=== PATIENT | female | born 1935 | race Caucasian/White ===

== ENCOUNTER 2017-02-28 08:19 | Outpatient (CLI) | payer MEDICARE ==
--- NOTE | 2017-02-28 11:55 | CT ---
CT ABDOMEN AND PELVIS WITH CONTRAST: HISTORY: Epigastric and pelvic pain for multiple months. Surgical history of cholecystectomy, appendectomy, p olyp removal from right knee, and hysterectomy. COMPARISON: Abdomen and pelvis CT from 2011. FINDINGS: The lung bases are without focal air space consolidation, pneumothorax, or effusion. No pericardial effusion. Wiscon effect of the intrahepatic and extrahepatic biliary system. Prior cholecystectomy. The common bile duct measures approximately 8 mm. There is mild prominence of the pancreatic duct, a t the upper limits of normal, measuring 4 mm at the pancreatic body and 4 mm at the pancreatic head. No distal obstructing mass is appreciated. There appears to be a cystic pancreatic mass of the panc reatic body, measuring 5 mm. This is seen on series 601, image 48, with minimal size increase in 201 1. Simple cyst, inferior pole, left kidney. There is exophytic hypodensity, inferior pole, right kidney , although measures just greater than fluid attenuation and has mildly increased in size from the com parison examination. This measures approximately 1.3 cm. In 2011, this measured approximately 8 mm. Also new, extending from the right renal medulla, is a hypodensity extending into the renal sinus f at, measuring 17 Hounsfield units, with an internal septation. Although this appears to communicate with the collecting system, it may represent a dilated calyx. 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 There is also focal dilatation of the lef t inferior renal calyx. Moderate diverticular disease of the sigmoid colon without active inflammation. No dilated loops of large or small bowel. The adrenal glands are unremarkable. No adenopathy. Small, fat-containing direct inguinal hernia. IMPRESSION: 1. 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 Follow-up M RI with pancreatic protocol, in six months to one year, is recommended. 2. Size increase of the hypodensity, inferior pole, right kidney, now measuring approximately 13 mm, previously 8 mm, may reflect a benign cyst, although this should also be interrogated on the follow- up pancreatic protocol MRI for enhancement. 3. New what appears to be dilatation of right and left inferior renal calyces. No hydronephrosis. 4. Moderate diverticular disease of the sigmoid colon without active inflammation. 5. No acute inflammatory process of the abdomen or pelvis. 6. Wiscon effect of the intrahepatic and extrahepatic biliary system, similar to 2011. POS: C
[2017-02-28] MEDS ORDERED: Iopamidol 370 76% 100 ML VIAL ONE (16:54)
== END 2017-02-28 08:20 | disposition home or self-care (01) ==
LOC: CT 08:19
PROVIDERS: ATTEND Internal Medicine Gastroenterology
DX: K21.9 Gastro-esophageal reflux disease without esophagitis (principal); R10.30 Lower abdominal pain, unspecified; R19.4 Change in bowel habit; K57.30 Diverticulosis of large intestine without perforation or abscess without bleeding; N28.89 Other specified disorders of kidney and ureter; K86.89 Other specified diseases of pancreas
CPT/HCPCS: 74177

== ENCOUNTER 2017-03-14 14:35 | Outpatient (CLI) | payer MEDICARE | END 2017-03-14 14:36 | disposition home or self-care (01) | LOC: BICMAMMO 14:35 | PROVIDERS: ATTEND Family Medicine | DX: R92.8 Other abnormal and inconclusive findings on diagnostic imaging of breast (principal); Z80.3 Family history of malignant neoplasm of breast | CPT/HCPCS: G0204; G0279; 77066 ==

== ENCOUNTER 2017-09-15 09:24 | Outpatient (CLI) | payer MEDICARE ==
[2017-09-15 09:54] LABS: #Eosinphils 0.2 thou/uL (0.0-0.7); #Lymphocytes 1.9 thou/uL (1.20-3.40); #Monocytes 0.4 thou/uL (0.11-0.59); #Neutrophils 5.9 thou/uL (1.40-6.50); %Basophils 0.2 % (0.0-1.0); %Lymphocytes 22.7 % (21.0-51.0); %Monocytes 5.2 % (0.0-10.0); %Neutrophils 69.8 % (42.0-75.0); Hemoglobin 12.9 g/dL (12.0-16.0); Mean Corpuscular HGB CONC 35.2 g/dL (32.0-36.0); Mean Corpuscular Hemoglobin 32.5 pg (27.0-31.0); Mean Corpuscular Volume 92.3 fL (78.0-98.0); Mean Platelet Volume 6.5 fL (7.4-10.4); Platelet Count 223 thou/uL (130-400); RBC Distribution Width 11.2 % (11.5-14.5); Red Blood Cell (RBC) Count 3.96 mill/uL (4.20-5.40); White Blood Cell (WBC) Count 8.4 thou/uL (4.8-10.8)
[2017-09-15 10:26] LABS: ALT (SGPT) 11 U/L (8-55); AST (SGOT) 14 U/L (5-34); Albumin 4.4 g/dL (3.4-4.8); Alkaline Phosphatase 58 U/L (40-150); Anion Gap 13 mmol/L (10-20); BUN (Urea Nitrogen) 12 mg/dL (9.8-20.1); Bilirubin, Total 0.7 mg/dL (0.2-1.2); Calc. Creatinine Clearance 0 mL/min (70-130); Calcium 9.6 mg/dL (7.8-10.44); Carbon Dioxide 28 mmol/L (23-31); Chloride 104 mmol/L (98-107); Estimated GFR-MDRD 81; Glucose 92 mg/dL (83-110); Potassium 4.6 mmol/L (3.5-5.1); Protein, Total 7.4 g/dL (6.0-8.3); Sodium 140 mmol/L (136-145)
--- NOTE | 2017-09-15 13:58 | MRI ---
MRI OF THE ABDOMEN WITHOUT AND WITH CONTRAST: Date: 09/15/17 COMPARISON: None. HISTORY: Abnormal finding on GI tract imaging. COMPARISON: CT abdomen/pelvis dated 02/28/17. TECHNIQUE: Multiplanar, multisequence MR images were obtained of the abdomen without and with contrast. FINDINGS: The gallbladder has been removed. There is enlargement of the common bile duct to 11.0 mm, which is l ikely a reservoir effect from prior cholecystectomy. No significant intrahepatic biliary dilatation i s seen. There are multiple well circumscribed, nonenhancing foci of high T2 signal in the bilateral kidneys m easuring up to 5.4 cm in size, which represent simple cysts. Within the pancreas, there are multiple tiny well circumscribed foci of high T2 signal which represen t cysts. In the body of the pancreas, there is a lesion emanating from the anterior aspect of the boateng creas measuring approximately 6.0 mm in size. This does not demonstrate enhancement and has questiona ble communication with the pancreatic duct. The pancreatic duct is mildly prominent, but unchanged co mpared to the prior examination. The adrenals and spleen are unremarkable. There are scattered diverticula in the colon. No abdominal adenopathy is seen. No marrow signal abnormality is seen. IMPRESSION: 1. The lesion previously seen in the pancreatic body may have communication with the pancreatic duct . This is not significantly changed in size compared to the prior examination. 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 Alternatively, this could represent a small cyst in the pancreas immediately adjac ent to the pancreatic duct. There are other scattered tiny cysts in the pancreas. 2. Bilateral renal cysts. 3. Status post cholecystectomy with enlargement of the common bile duct. This is likely a reservoir effect from prior cholecystectomy. POS: HAIM
== END 2017-09-15 09:25 | disposition home or self-care (01) ==
LOC: MRI 09:24
PROVIDERS: ATTEND Internal Medicine Gastroenterology
DX: K57.32 Diverticulitis of large intestine without perforation or abscess without bleeding (principal); R93.3 Abnormal findings on diagnostic imaging of other parts of digestive tract; N28.1 Cyst of kidney, acquired; K86.2 Cyst of pancreas; K83.8 Other specified diseases of biliary tract; Z90.49 Acquired absence of other specified parts of digestive tract
CPT/HCPCS: 36415; 74183; 80053; 85025

== ENCOUNTER 2018-03-16 09:01 | Outpatient (CLI) | payer MEDICARE | END 2018-03-16 09:02 | disposition home or self-care (01) | LOC: BICMAMMO 09:01 | PROVIDERS: ATTEND Family Medicine | DX: Z12.31 Encounter for screening mammogram for malignant neoplasm of breast (principal); R92.1 Mammographic calcification found on diagnostic imaging of breast; Z80.3 Family history of malignant neoplasm of breast | CPT/HCPCS: 77063; 77067 ==

== ENCOUNTER 2018-09-09 11:31 | Observation (INO) | payer MEDICARE ==
--- NOTE | 2018-09-09 11:55 | RAD ---
Exam: Chest one view HISTORY:Chest pain Comparison: 06/21/2015 FINDINGS: Lungs: No masses or consolidation. The right hemidiaphragm remains elevated. Cardiac silhouette:Accentuated by portable technique Pulmonary vessels: Normal Pleural Spaces: Clear Pneumothorax: None Osseous abnormalities: None of acuity. IMPRESSION: No focal consolidation.
[2018-09-09 12:09] LABS: #Eosinphils 0.1 thou/uL (0.0-0.7); #Lymphocytes 1.8 thou/uL (1.20-3.40); #Monocytes 0.4 thou/uL (0.11-0.59); #Neutrophils 3.5 thou/uL (1.40-6.50); %Basophils 0.7 % (0.0-1.0); %Eosinophils 1.1 % (0.0-10.0); %Lymphocytes 30.8 % (21.0-51.0); %Monocytes 7.1 % (0.0-10.0); %Neutrophils 60.2 % (42.0-75.0); Hemoglobin 12.7 g/dL (12.0-16.0); Mean Corpuscular HGB CONC 32.5 g/dL (32.0-36.0); Mean Corpuscular Hemoglobin 30.3 pg (27.0-31.0); Mean Corpuscular Volume 93.2 fL (78.0-98.0); Platelet Count 257 thou/uL (130-400); RBC Distribution Width 11.2 % (11.5-14.5); Red Blood Cell (RBC) Count 4.18 mill/uL (4.20-5.40); White Blood Cell (WBC) Count 5.9 thou/uL (4.8-10.8)
[2018-09-09 12:39] LABS: ALT (SGPT) 11 U/L (8-55); AST (SGOT) 19 U/L (5-34); Albumin 4.1 g/dL (3.4-4.8); Alkaline Phosphatase 49 U/L (40-150); Anion Gap 13 mmol/L (10-20); BUN (Urea Nitrogen) 17 mg/dL (9.8-20.1); Bilirubin, Total 0.6 mg/dL (0.2-1.2); CK (CPK) 69 U/L (29-168); Calc. Creatinine Clearance 0 mL/min (70-130); Calcium 10.2 mg/dL (7.8-10.44); Carbon Dioxide 28 mmol/L (23-31); Chloride 103 mmol/L (98-107); Estimated GFR-MDRD 67; Globulin 2.7 g/dL (2.4-3.5); Glucose 90 mg/dL (83-110); Lipase 25 U/L (8-78); Potassium 4.6 mmol/L (3.5-5.1); Protein, Total 6.8 g/dL (6.0-8.3); Sodium 139 mmol/L (136-145)
[2018-09-09] MEDS ORDERED: Nitroglycerin 0.4 MG TAB (25 Tab Bottle) PO PRN (14:45)
[2018-09-09] MEDS ORDERED: Acetaminophen 325 MG TAB PO PRN (14:45)
[2018-09-09] MEDS ORDERED: Calcium Carbonate 500 MG ChewTAB PO PRN (14:49)
[2018-09-09] MEDS ORDERED: hydrALAZINE 20 MG/ML VIAL SLOW IVP PRN (14:57)
[2018-09-09] MEDS ORDERED: Metoprolol Tartrate 25 MG TAB PO SCH (15:00)
[2018-09-09] MEDS ORDERED: Aspirin 325 mg Enteric Coated Tablet PO SCH (15:15)
--- NOTE | 2018-09-09 15:32 | HP ---
PRIMARY CARE PHYSICIAN: Dr. Arellano. CHIEF COMPLAINT: "Feel bad." HISTORY OF PRESENT ILLNESS: This is an 82-year-old female with history of coronary artery disease and 5-stent placement, hypertension, dyslipidemia, irritable bowel, TIAs, who presents to the emergency room with the above complaint. The patient reports after she got up this morning, she took her blood pressure and the systolic was 188. She retook it and it was lower, but still not normal. She proceeded with her day and went to exercise and walked around, went for coffee and noticed that she still did not feel too good. She describes pressure in her chest in the center area, that did not radiate, no precipitating or relieving factors. She did have some shortness of breath, but denies any nausea, vomiting, or abdominal pain. She took two Tums without change, and the symptoms persisted. She stopped at the [facility] with a complaint of chest heaviness, there they provided an aspirin, and she was transferred to this facility. She denies any symptoms now, denies any recent history of similar symptoms, and denies any other associated symptoms aside from the shortness of breath and belching. In the emergency room, the patient was evaluated, and labs completed and hospitalist called for admission. PAST MEDICAL HISTORY: 1. Coronary artery disease with history of 5-stent placement. 2. Dyslipidemia. 3. Hypertension. 4. Irritable bowel. 5. TIAs. PAST SURGICAL HISTORY: 1. Hysterectomy. 2. Appendectomy. 3. Cholecystectomy. 4. Right knee replacement. SOCIAL HISTORY: She lives with her who is her surrogate decision maker Blayne, denies tobacco or alcohol, and she is a full code. REVIEW OF SYSTEMS: Positive for shortness of breath and belching, negative for nausea, vomiting, abdominal pain, fevers or chills, change in her vision, difficulty swallowing. All remaining review of systems are reviewed and negative. MEDICATIONS: Unknown, and review from the medical record with her pharmacy shows; 1. Clopidogrel 75 mg daily. 2. Ibandronate 150 mg a month. 3. Omeprazole 40 mg, no frequency noted. 4. Furosemide 20 mg, no frequency noted. 5. Losartan 100 mg, no dosing instructions. 6. Potassium chloride 10 mEq daily. 7. Pravastatin 10 mg and ezetimibe 10 mg also without dosing. The patient will have her bring in her medications. PHYSICAL EXAMINATION: VITAL SIGNS: Her blood pressure is 175/76, pulse 62, respirations 18, temperature 98.1, sats 98% on room air. GENERAL: Awake, alert, responsive, in no apparent distress. Able to speak in full sentences. HEENT: Her pupils are equal and round. No scleral icterus. Oral mucosa is pink and moist. NECK: Supple, nontender. LYMPHATICS: No palpable cervical or supraclavicular lymphadenopathy. NECK: No audible bruits. LUNGS: Clear to auscultation bilateral. HEART: Normal S1, S2. Regular rate and rhythm. No significant murmur. ABDOMEN: Soft with present bowel sounds. Nontender. Nondistended. EXTREMITIES: No clubbing, cyanosis, or edema. VASCULAR: 2+ posterior tibialis pulses. SKIN: No visible rashes. NEUROLOGIC: Moves arms and legs equally. No visible deficits. RUST FINDINGS AND TEST RESULTS: EKG is personally reviewed. Sinus rhythm, left axis deviation, normal intervals, abnormal R-wave progression, no ST changes. Chest x-ray shows no acute process, personally reviewed. LABORATORY DATA: Today CBC; 5.9, 12.7, 39.0, 257. Renal panel; 139, 4.6, 103, 28, 17, 0.82 , 90. LFTs negative. Troponin x1 is negative. IMPRESSION: 1. Atypical chest pain in a patient with known coronary artery disease and history of stent placement. 2. Hypertension, uncontrolled. 3. Dyslipidemia, unknown control. 4. Irritable bowel syndrome. 5. History of transient ischemic attack. PLAN: 1. Observation status in the hospital. 2. Telemetry monitoring. Two additional troponins. Echocardiogram and Cardiology consultation. The patient sees Dr. Ojeda as an outpatient, who is on-call tonight. We will hold on ordering a stress test pending his review as I am uncertain what testing has occurred in the outpatient setting. 3. We will order full-dose aspirin, and continue clopidogrel, we will also order omeprazole. 4. Hypertension, controlled. We will start a low-dose beta bernadine as well as losartan, dose it twice a day with hold parameters. Will use hydralazine as needed for significantly elevated blood pressure. 5. We will continue ezetimibe, holding the statin as the patient reports that she was having all over pain with the statin and it was recently discontinued. 6. Further clinical course pending all of the above and Dr. Ojeda's consultation. 7. DVT prophylaxis. She is ambulatory. 8. GI prophylaxis not indicated. 9. Code status is full and surrogate decision maker is her . 10. Reviewed the plan of care with the patient. No questions or further needs at the end of evaluation. Job ID: [id number] MTDD
[2018-09-09 15:44] LABS: Troponin I Less than 0.010 ng/mL (< 0.028)
[2018-09-09 16:00] VITALS: BMI 26.2
[2018-09-09] MEDS ORDERED: Aspirin 325 MG TAB ONE (16:48)
[2018-09-09] MEDS ORDERED: Metoprolol Tartrate 25 MG TAB ONE (16:53)
[2018-09-09 18:32] LABS: Troponin I 0.012 ng/mL (< 0.028)
[2018-09-09] MEDS ORDERED: Mag-Al 1200 mg/1200 mg/30 ML UDCUP ONE (19:03)
[2018-09-09] MEDS ORDERED: Famotidine/PF 20 mg/2ml Vial SLOW IVP SCH (19:15)
[2018-09-09] MEDS ORDERED: Famotidine/PF 20 mg/2ml Vial ONE (19:16)
[2018-09-09] MEDS ORDERED: Mag-Al 1200 mg/1200 mg/30 ML UDCUP PO SCH (19:30)
[2018-09-09] MEDS: Metoprolol Tartrate 25 MG TAB PO SCH (20:43)
[2018-09-09] MEDS: Losartan 25 MG TAB PO SCH (21:29)
--- NOTE | 2018-09-10 00:22 | CON ---
DATE OF CONSULTATION: REASON FOR CONSULTATION: Chest pressure. HISTORY OF PRESENT ILLNESS: Ms. Desiree Palm is a very pleasant patient who has a history of coronary artery disease, previous stent implantation. She was feeling well this morning when she went and exercised and later began feeling upper epigastric discomfort and then lower chest discomfort and then pressure across her chest, came here to the emergency room. Cardiac enzymes have been negative. EKGs are normal. PAST MEDICAL HISTORY: 1. She has a history of coronary artery disease. 2. History of esophageal reflux. She previously had been on Protonix, but is not taking that currently. MEDICATIONS: At home, 1. She was taking losartan 50 mg twice a day. 2. Metoprolol 25 mg twice a day. 3. Pantoprazole, she is not taking. 4. Aspirin. 5. She was still on clopidogrel. ALLERGIES: NONE KNOWN, BUT SHE IS INTOLERANT TO STATIN. SHE EVEN RECENTLY TRIED TO TAKE SOME PRAVASTATIN, BUT GOT MUSCLE PAIN AGAIN, ONLY COULD TAKE IT A FEW DAYS. REVIEW OF SYSTEMS: CONSTITUTIONAL: No significant weight gain or loss. VISION: No changes. HEARING: No changes. PULMONARY: No cough or wheezing. GASTROINTESTINAL: No nausea, vomiting, or diarrhea. SKIN: No rashes. NEUROLOGIC: No unilateral weakness or numbness. PSYCHIATRIC: No unusual depression or anxiety. PHYSICAL EXAMINATION: GENERAL: This is a pleasant patient, resting comfortably, in no distress. She said she felt much better when she got some Maalox. VITAL SIGNS: Her blood pressure 134/68, pulse 60, it is regular. HEENT: Eyes, sclerae are nonicteric. Mouth, mucous membranes are moist. NECK: Supple without lymphadenopathy. LUNGS: Clear. No wheezing, rales, or rhonchi. CARDIAC: Normal S1, normal S2. There is no murmur, rub, or gallop. ABDOMEN: Soft, nontender. EXTREMITIES: No clubbing. No cyanosis or edema. She has good peripheral pulses. LABORATORY DATA: Cardiac enzymes were negative. Potassium is 4.6, hemoglobin is 12.7. EKG showed no ischemic changes. ASSESSMENT: 1. Previous stent implantation. She had a 3.5 x 16 mm stent placed in the right coronary artery in 2004, 3.0 x 16 mm Taxus in 2004. She subsequently had restenosis and that was re-stented with a 3.0 x 20 Taxus. Circumflex had a 3.0 x 12 PROMUS placed in 2011. The other vessels did not have restenosis at that point. 2. She had a stress test last summer which was negative. PLAN: At this point, it is unclear what is causing the chest discomfort. I suspect it is gastrointestinal. We will resume antacid therapy and do stress testing tomorrow. Further recommendations are based on the clinical course. Job ID: [id number]
[2018-09-10] MEDS ORDERED: Aspirin 325 mg Enteric Coated Tablet PO SCH (09:00)
[2018-09-10] MEDS: Ezetimibe 10 MG TAB PO SCH (09:17)
[2018-09-10] MEDS: Clopidogrel Bisulfate 75 MG TAB PO SCH (09:17)
[2018-09-10] MEDS: Losartan 25 MG TAB PO SCH ×2 (09:17→21:15)
[2018-09-10] MEDS: Famotidine/PF 20 mg/2ml Vial SLOW IVP SCH ×2 (09:18→21:15)
[2018-09-10] MEDS ORDERED: Regadenoson 0.4 MG/5 ML SYRINGE ONE (10:19)
--- NOTE | 2018-09-10 16:25 | NM ---
Radionucleotide stress and rest myocardial perfusion scan with CT attenuation correction and SPECT im aging Left ventricular wall motion evaluation and ejection fraction. HISTORY: Chest pain. FINDINGS: Lexiscan protocol. Homogeneous uptake of radiotracer throughout the left ventricular myocar dium on the stress and rest images. No focal perfusion defect or reversibility. QGS analysis of gated SPECT images shows no focal wall motion abnormalities. Ejection fraction calcul ated at 80%. IMPRESSION: Normal myocardial perfusion scan. Normal LVEF.
--- NOTE | 2018-09-10 18:18 | PRG ---
DATE OF SERVICE: 09/10/2018 SUBJECTIVE: The patient is seen and examined at bedside. She just came back from her stress test. She does not have much complaints to offer. OBJECTIVE: VITAL SIGNS: Blood pressure is 130/58, pulse is 61, temperature is 98.0, respirations 15, and O2 saturation is 98% on room air. HEENT: Head is atraumatic and normocephalic. Eyes are PERRLA. Sclerae are nonicteric. Oral mucosa is moist. NECK: Supple. LUNGS: Clear. HEART: S1 and S2 normal. No S3. No S4. No any murmur. ABDOMEN: Soft and nontender. EXTREMITIES: No clubbing, cyanosis, or edema. LABORATORY DATA: None today. Stress test nuclear medicine, impression normal perfusion scan, normal LVEF. Ejection fraction calculated at 80%. IMPRESSION: 1. Atypical chest pain with negative stress test. We are awaiting for echocardiogram. 2. Hypertension, uncontrolled. 3. Dyslipidemia. 4. Irritable bowel syndrome. 5. History of transient ischemic attack. PLAN: I am going to extend this observation. Overnight, we will get results back on her echocardiogram and we will make decision about the next step as soon as we have that. We will continue the current regimen. Her blood pressure is under good control. We will continue clopidogrel and Zetia along with Cozaar, metoprolol tartrate, pantoprazole, aspirin, and calcium carbonate. Job ID: [id number]
--- NOTE | 2018-09-10 18:22 | PRG ---
DATE OF SERVICE: 09/10/2018 SUBJECTIVE: Ms. Palm feels fine. No chest pain or pressure. The acid reflux is improved. OBJECTIVE: VITAL SIGNS: Blood pressure 130/58, pulse 60. LUNGS: Clear. CARDIAC: Normal S1 and normal S2. ABDOMEN: Soft and nontender. DIAGNOSTIC STUDIES: Stress test was normal. ASSESSMENT: 1. History of coronary artery disease with stent implantation. 2. No evidence of any stress-induced ischemia on stress testing. 3. Esophageal reflux. 4. Statin intolerance. PLAN: The patient will go home tomorrow on current medical regimen. We would keep her on Protonix long-term. Aspirin could be reduced to 81 mg a day. Job ID: [id number]
[2018-09-10] MEDS: Metoprolol Tartrate 25 MG TAB PO SCH ×2 (19:39→21:15)
[2018-09-11 07:40] VITALS: BP 170/76; TEMP 97.6
[2018-09-11] MEDS ORDERED: Aspirin 325 mg Enteric Coated Tablet PO SCH (09:00)
[2018-09-11] MEDS: Clopidogrel Bisulfate 75 MG TAB PO SCH (09:05)
[2018-09-11] MEDS: Famotidine/PF 20 mg/2ml Vial SLOW IVP SCH (09:06)
[2018-09-11] MEDS: Losartan 25 MG TAB PO SCH (09:06)
[2018-09-11] MEDS: Ezetimibe 10 MG TAB PO SCH (09:06)
[2018-09-11] MEDS: Metoprolol Tartrate 25 MG TAB PO SCH (09:06)
--- NOTE | 2018-09-11 10:25 | DIS ---
DATE OF ADMISSION: 09/09/2018 DATE OF DISCHARGE: 09/11/2018 CONSULTANTS: Jeannette Ojeda MD, Cardiology Service. TESTINGS: Stress test with nuclear medicine. HOSPITAL COURSE: The patient is an 82-year-old female, who was admitted to the hospital with feeling bad. Apparently, she has a history of coronary artery disease and 5 stents placement along with hypertension, dyslipidemia, irritable bowels syndrome, and history of TIA. She noticed that her blood pressure at home was elevated at 188. She did have some shortness of breath, but denied any nausea, vomiting, or abdominal pain. She took Tums without change and since the symptoms persisted, she stopped at [facility] with complaints of chest heaviness. She was provided aspirin and transferred to emergency room at [facility] in [place]. At the time of emergency room evaluation, her blood pressure was 175/76, respirations 18, temperature was 98.1, and saturation was 98% on room air. Her EKG showed sinus rhythm with left axis deviation, normal intervals, and abnormal R-wave progression. No ST-segment changes. Chest x-ray did not show any acute abnormalities. Her labs showed white count of 5.9, hemoglobin of 12.7, hematocrit 39.0, and platelet count was 257. Electrolytes within normal limits and kidney function was normal. LFTs were normal and troponin I x1 was negative. The patient got admitted to hospital. Echocardiogram was requested and the Cardiology consult was requested. It was not clear what was causing her chest discomfort, so antiacid therapy was resumed and stress test. She underwent stress test with nuclear medicine, which came back negative. LVEF was estimated at 80% and the perfusion scan was normal. Echocardiogram was done, but results are still pending. She is released by Dr. Ojeda to go home today and he will discuss the findings on her echocardiogram results when she is following up with him. At the time of discharge, her condition is good. Her vitals; blood pressure is 148/75, pulse is 61, respirations 15, O2 saturation is 97, and temperature is 98.5. She was seen and examined before she is discharged. MEDICATIONS: At the time of discharge, 1. Protonix. 2. Calcium carbonate 1000 mg q.4 hours p.r.n. as needed. 3. Plavix 75 mg once a day. 4. Zetia 10 mg once a day. 5. Losartan 100 mg once a day. 6. Potassium chloride 10 mEq once a day. 7. Multivitamin one a day. 8. Pravastatin 10 mg at bedtime. 9. Boniva 150 mg q.30 days. 10. MiraLAX 15 g daily. 11. Fish oil 1000 mg daily. 12. Vitamin D3 5000 units daily. 13. Coenzyme Q10 400 mg daily. 14. Aspirin 81 mg daily. The patient states that she cannot take aspirin because of her stomach problem she had from an aspirin before, but I advised her to discuss this problem with Dr. Ojeda when she follows in his office. Also, she will continue her Lasix, which is furosemide 20 mg once a day. DIET: Low-salt, heart-healthy diet. ACTIVITIES: As tolerated. DISPOSITION: Home. TIME SPENT: Time spent on this discharge is less than 30 minutes. Job ID: [id number]
--- NOTE | 2018-09-12 11:58 | EKG ---
Test Reason : Blood Pressure : / mmHG Vent. Rate : 062 BPM Atrial Rate : 062 BPM P-R Int : 156 ms QRS Dur : 084 ms QT Int : 408 ms P-R-T Axes : 010 -40 026 degrees QTc Int : 414 ms Normal sinus rhythm Left axis deviation Low voltage QRS Abnormal ECG Confirmed by NOEL VITAL D.O. ([id number]), photography editor YAW DHILLON ([id number]) on 09/12/2018 11:57:46 AM Referred By: Confirmed By:NOEL VITAL D.O.
== END 2018-09-11 10:02 | disposition home or self-care (01) ==
LOC: ERS 11:31 → ERHOLD 13:41 → 2SW 20:04
PROVIDERS: ADMIT Internal Medicine; ATTEND Internal Medicine
DX: R07.89 Other chest pain (principal); I25.10 Atherosclerotic heart disease of native coronary artery without angina pectoris; E78.5 Hyperlipidemia, unspecified; I10 Essential (primary) hypertension; K58.9 Irritable bowel syndrome, unspecified; K21.9 Gastro-esophageal reflux disease without esophagitis; T46.6X5A Adverse effect of antihyperlipidemic and antiarteriosclerotic drugs, initial encounter; M19.90 Unspecified osteoarthritis, unspecified site; Z86.73 Personal history of transient ischemic attack (TIA), and cerebral infarction without residual deficits; Z95.5 Presence of coronary angioplasty implant and graft; Z79.02 Long term (current) use of antithrombotics/antiplatelets; Z79.899 Other long term (current) drug therapy
CPT/HCPCS: 71045; 78452; 80053; 82550; 83690; 84484 ×2; 85025; 93005; 93017; 93306; 94760; 96374; 96376; 99285; A9500; G0378 ×2; 36415; J2785; S0028

== ENCOUNTER 2019-08-12 12:18 | Outpatient (CLI) | payer MEDICARE ==
--- NOTE | 2019-08-12 15:43 | MMO ---
Bilateral MAMMO Bilat Screen DDI+MAI. CLINICAL HISTORY: Patient is 83 years old and is seen for screening. The patient has the following family history of breast cancer: sister, malignant (generic). The patient has no personal history of cancer. The patient has a history of right Ultrasound Guided Core Biopsy in 2013 - benign. VIEWS: The views performed were: bilateral craniocaudal with tomosynthesis and bilateral mediolateral oblique with tomosynthesis. FILMS COMPARED: The present examination has been compared to prior imaging studies performed at [facility] on 03/14/2017 and 03/16/2018, and at [facility] on 02/15/2016 and 09/10/2016. This study has been interpreted with the assistance of computer-aided detection. MAMMOGRAM FINDINGS: There are scattered fibroglandular densities. Finding 1: There are stable benign appearing calcifications seen in both breasts. Finding 2: There is a stable biopsy clip seen in the right breast. There are no suspicious masses, suspicious calcifications, or new areas of architectural distortion. IMPRESSION: THERE IS NO MAMMOGRAPHIC EVIDENCE OF MALIGNANCY. A ROUTINE FOLLOW-UP MAMMOGRAM IN 1 YEAR IS RECOMMENDED. THE RESULTS OF THIS EXAM WERE SENT TO THE PATIENT. ACR BI-RADS Category 2 - Benign finding MAMMOGRAPHY NOTE: 1. A negative mammogram report should not delay a biopsy if a dominant of clinically suspicious mass is present. 2. Approximately 10% to 15% of breast cancers are not detected by mammography. 3. Adenosis and dense breasts may obscure an underlying neoplasm. Reported by: RACIEL PHAM MD Electonically Signed: [id number]
== END 2019-08-12 12:19 | disposition home or self-care (01) ==
LOC: BICMAMMO 12:18
PROVIDERS: ATTEND Family Medicine
DX: Z12.31 Encounter for screening mammogram for malignant neoplasm of breast (principal); Z80.3 Family history of malignant neoplasm of breast; Z91.89 Other specified personal risk factors, not elsewhere classified
CPT/HCPCS: 77063; 77067

== ENCOUNTER 2019-12-20 23:15 | Emergency (ER) | payer MEDICARE ==
[2019-12-20] MEDS ORDERED: Lidocaine 4% Cream 5 GM TUBE w/ Tegaderm ONE (23:52)
[2019-12-21] MEDS ORDERED: Boostrix 0.5 ML VIAL ONE (00:17)
--- NOTE | 2019-12-21 07:02 | CT ---
CT OF THE FACE WITHOUT CONTRAST: Date: 12/20/2019 HISTORY: History of tripping and falling with injury to the left aspect of the face. FINDINGS: The visualized nasal bone is intact. The orbital rims are intact. There is an inferior left orbital f brooks blowout fracture with depression of the left inferior orbital floor approximately 5.0 mm. There is hemorrhage and mucosal thickening within the left maxillary sinus. No additional fracture is gross ly evident. Mastoid air cells are clear. Visualized intracranial contents appear within normal limits . Iliamna lenses have been replaced. Dental amalgam limits evaluation of the oral cavity. There is mil d spondylosis of the cervical spine. IMPRESSION: 1. Left inferior orbital floor blowout fracture with approximately 5.0 mm of depression of the left inferior orbital floor fracture fragment. There is no overt CT evidence to suggest entrapment of the left inferior rectus. Recommend correlation with clinical exam. 2. Air-hemorrhage layer within the left maxillary sinus. POS: BH
--- NOTE | 2019-12-21 07:04 | CT ---
CT OF THE BRAIN WITHOUT CONTRAST: Date: 12/20/2019 INDICATION: History of fall with head injury and facial injury. COMPARISON: Prior exam dated 04/18/2014. FINDINGS: There is generalized cerebral and cerebellar atrophy. There is moderate chronic small vessel white ma tter ischemic change. Septum pellucidum and third ventricle are midline. There is a left inferior orb ital floor blowout fracture that is better detailed on the CT of the face. There is an air-hemorrhage layer within the left maxillary sinus. IMPRESSION: 1. No acute intracranial abnormality. 2. Generalized cerebral and cerebellar atrophy with moderate chronic small vessel white matter ische fani change. 3. Left inferior orbital floor blowout fracture. POS: BH
== END 2019-12-21 01:23 | disposition home or self-care (01) ==
LOC: ERS 23:15
DX: S02.32XA Fracture of orbital floor, left side, initial encounter for closed fracture (principal); S01.112A Laceration without foreign body of left eyelid and periocular area, initial encounter; S01.511A Laceration without foreign body of lip, initial encounter; E78.5 Hyperlipidemia, unspecified; I10 Essential (primary) hypertension; M19.90 Unspecified osteoarthritis, unspecified site; W01.198A Fall on same level from slipping, tripping and stumbling with subsequent striking against other object, initial encounter; Z23 Encounter for immunization
CPT/HCPCS: 12011; 70450; 70486; 90471; 90715

== ENCOUNTER 2020-01-09 16:31 | Emergency (ER) | payer MEDICARE ==
--- NOTE | 2020-01-09 16:57 | RAD ---
XR Chest 1 View Portable HISTORY: Bronchitis, chest pain COMPARISON: 2018 FINDINGS: The heart size is normal. There is continued elevation the right hemidiaphragm. The lungs a re without focal areas of consolidation, pneumothorax or pleural effusions. IMPRESSION: No radiographic evidence of acute cardiopulmonary process.
[2020-01-09 17:06] LABS: #Basophils 0.1 thou/uL (0.0-0.2); #Eosinphils 0.1 thou/uL (0.0-0.7); #Lymphocytes 2.8 thou/uL (1.20-3.40); #Monocytes 0.7 thou/uL (0.11-0.59); #Neutrophils 4.6 thou/uL (1.40-6.50); %Basophils 0.8 % (0.0-1.0); %Eosinophils 0.8 % (0.0-10.0); %Lymphocytes 34.5 % (21.0-51.0); %Monocytes 8.8 % (0.0-10.0); %Neutrophils 55.2 % (42.0-75.0); Hemoglobin 12.8 g/dL (12.0-16.0); Mean Corpuscular HGB CONC 34.7 g/dL (32.0-36.0); Mean Corpuscular Hemoglobin 32.8 pg (27.0-31.0); Mean Corpuscular Volume 94.6 fL (78.0-98.0); Mean Platelet Volume 6.8 fL (7.4-10.4); Platelet Count 302 thou/uL (130-400); RBC Distribution Width 11.5 % (11.5-14.5); Red Blood Cell (RBC) Count 3.91 mill/uL (4.20-5.40); White Blood Cell (WBC) Count 8.3 thou/uL (4.8-10.8)
[2020-01-09 17:30] LABS: ALT (SGPT) 15 U/L (8-55); AST (SGOT) 19 U/L (5-34); Albumin 4.3 g/dL (3.4-4.8); Alkaline Phosphatase 45 U/L (40-110); Anion Gap 14 mmol/L (10-20); BUN (Urea Nitrogen) 16 mg/dL (9.8-20.1); Bilirubin, Total 0.4 mg/dL (0.2-1.2); Calc. Creatinine Clearance 0 mL/min (70-130); Calcium 9.3 mg/dL (7.8-10.44); Carbon Dioxide 25 mmol/L (23-31); Chloride 108 mmol/L (98-107); Estimated GFR-MDRD 71; Glucose 94 mg/dL (83-110); Potassium 3.9 mmol/L (3.5-5.1); Protein, Total 7.3 g/dL (6.0-8.3); Sodium 143 mmol/L (136-145)
[2020-01-09] MEDS ORDERED: Ibuprofen 200 MG TAB ONE (17:33)
== END 2020-01-09 18:36 | disposition home or self-care (01) ==
LOC: ERS 16:31
DX: J40 Bronchitis, not specified as acute or chronic (principal); M94.0 Chondrocostal junction syndrome [Tietze]; E78.5 Hyperlipidemia, unspecified; I10 Essential (primary) hypertension; M19.90 Unspecified osteoarthritis, unspecified site
CPT/HCPCS: 71045; 80053; 83880; 84484; 85025; 85379; 93005

== ENCOUNTER 2020-02-08 15:59 | Emergency (ER) | payer MEDICARE ==
[2020-02-08 17:31] LABS: #Lymphocytes 1.2 thou/uL (1.20-3.40); #Monocytes 0.5 thou/uL (0.11-0.59); #Neutrophils 3.9 thou/uL (1.40-6.50); %Basophils 0.4 % (0.0-1.0); %Eosinophils 0.6 % (0.0-10.0); %Lymphocytes 20.6 % (21.0-51.0); %Monocytes 8.3 % (0.0-10.0); %Neutrophils 70.1 % (42.0-75.0); Hemoglobin 11.9 g/dL (12.0-16.0); Mean Corpuscular HGB CONC 32.9 g/dL (32.0-36.0); Mean Platelet Volume 7.1 fL (7.4-10.4); Platelet Count 279 thou/uL (130-400); Red Blood Cell (RBC) Count 3.83 mill/uL (4.20-5.40); White Blood Cell (WBC) Count 5.6 thou/uL (4.8-10.8)
--- NOTE | 2020-02-08 17:52 | RAD ---
XR Chest 1 View Portable History: Cough Comparison: Radiograph January 19, 2020 Findings: Increased peribronchial vascular markings. There is also subtle left lower lobe and lingula r airspace opacities. No pneumothorax. No acute osseous abnormality. Impression: Evidence of chronic bronchitis with likely developing lingular and left lower lobe pneumo alicia.
[2020-02-08 17:56] LABS: ALT (SGPT) 17 U/L (8-55); AST (SGOT) 24 U/L (5-34); Alkaline Phosphatase 61 U/L (40-110); Anion Gap 16 mmol/L (10-20); BUN (Urea Nitrogen) 10 mg/dL (9.8-20.1); Bilirubin, Total 0.3 mg/dL (0.2-1.2); Calc. Creatinine Clearance 0 mL/min (70-130); Calcium 9.2 mg/dL (7.8-10.44); Carbon Dioxide 27 mmol/L (23-31); Chloride 103 mmol/L (98-107); Globulin 2.9 g/dL (2.4-3.5); Glucose 100 mg/dL (83-110); Protein, Total 6.9 g/dL (6.0-8.3); Sodium 142 mmol/L (136-145)
[2020-02-08] MEDS ORDERED: predniSONE 20 MG TAB ONE (18:17)
[2020-02-08] MEDS ORDERED: Azithromycin 250 MG TAB ONE (20:41)
== END 2020-02-08 21:06 | disposition home or self-care (01) ==
LOC: ERS 15:59
DX: J44.1 Chronic obstructive pulmonary disease with (acute) exacerbation (principal); J18.9 Pneumonia, unspecified organism; E78.5 Hyperlipidemia, unspecified; I10 Essential (primary) hypertension; M19.90 Unspecified osteoarthritis, unspecified site
CPT/HCPCS: 36415; 71045; 80053; 83605; 83880; 84484; 85025; 87040; 93005; 94760; J7512

== ENCOUNTER 2020-08-14 09:48 | Outpatient (CLI) | payer MEDICARE, OTHER | END 2020-08-14 09:49 | disposition home or self-care (01) | LOC: BICMAMMO 09:48 | PROVIDERS: ATTEND Family Medicine | DX: Z12.31 Encounter for screening mammogram for malignant neoplasm of breast (principal); Z80.3 Family history of malignant neoplasm of breast | CPT/HCPCS: 77063; 77067 ==

== ENCOUNTER 2021-08-03 15:40 | Inpatient (IN) | payer MEDICARE ==
[~2021-08-03 15:40] MED LIST: Iopamidol-370 76% 500 ML 1 ML ONE
[2021-08-03 16:59] LABS: #Eosinphils 0.1 thou/uL (0.0-0.7); #Lymphocytes 1.6 thou/uL (1.20-3.40); #Monocytes 0.5 thou/uL (0.11-0.59); #Neutrophils 3.7 thou/uL (1.40-6.50); %Basophils 0.2 % (0.0-1.0); %Eosinophils 0.9 % (0.0-10.0); %Lymphocytes 27.4 % (21.0-51.0); %Monocytes 8.4 % (0.0-10.0); Hemoglobin 11.6 g/dL (12.0-16.0); Mean Corpuscular HGB CONC 33.3 g/dL (32.0-36.0); Mean Corpuscular Hemoglobin 31.1 pg (27.0-31.0); Mean Corpuscular Volume 93.4 fL (78.0-98.0); Mean Platelet Volume 6.1 fL (7.4-10.4); Platelet Count 308 thou/uL (130-400); Red Blood Cell (RBC) Count 3.74 mill/uL (4.20-5.40); White Blood Cell (WBC) Count 5.9 thou/uL (4.8-10.8)
[2021-08-03 17:15] LABS: ALT (SGPT) 10 U/L (8-55); AST (SGOT) 12 U/L (5-34); Albumin 4.1 g/dL (3.4-4.8); Alkaline Phosphatase 49 U/L (40-110); Anion Gap 10 mmol/L (10-20); BUN (Urea Nitrogen) 18 mg/dL (9.8-20.1); Bilirubin, Total 0.4 mg/dL (0.2-1.2); CK (CPK) 67 U/L (29-168); Calc. Creatinine Clearance 0 mL/min (70-130); Calcium 9.4 mg/dL (7.8-10.44); Carbon Dioxide 29 mmol/L (23-31); Chloride 105 mmol/L (98-107); Globulin 2.7 g/dL (2.4-3.5); Glucose 81 mg/dL (83-110); Lipase 31 U/L (8-78); Potassium 4.8 mmol/L (3.5-5.1); Protein, Total 6.8 g/dL (5.8-8.1); Sodium 139 mmol/L (136-145)
[2021-08-03] MEDS ORDERED: Pantoprazole 40 MG VIAL ONE (18:49)
[2021-08-03 18:59] LABS: Bilirubin Negative (Negative); Blood, Urine Negative (Negative); Clarity Clear (Clear); Glucose, Urine (Dipstick) Normal (Negative); Ketone, Urine Negative (Negative); Leukocyte Negative Leu/uL (Negative); Nitrite Negative (Negative); Protein, Urine (Dipstick) Negative (Neg-Trace); Specific Gravity, Urine 1.007 (1.002-1.036); Urobilinogen Normal mg/dL (Less than 2)
[2021-08-03] MEDS ORDERED: HYDROcodone/Acetaminophen 5/325 mg Tablet PO PRN (21:21)
[2021-08-03] MEDS ORDERED: Acetaminophen 325 MG TAB PO PRN (21:21)
[2021-08-03] MEDS ORDERED: Senokot S 8.6-50 MG TAB PO PRN (21:21)
[2021-08-03] MEDS ORDERED: Ondansetron ODT 4 MG TAB SL PRN (21:45)
[2021-08-03] MEDS ORDERED: Sodium Chloride 0.9% 1,000 ML IV SCH (21:45)
[2021-08-03] MEDS ORDERED: Ondansetron PF 4 MG/2 ML Vial IVP PRN (21:45)
[2021-08-03 23:22] VITALS: BMI 25.0
[2021-08-04 01:23] LABS: Hemoglobin 11.2 g/dL (12.0-16.0)
[2021-08-04 07:38] LABS: ALT (SGPT) 9 U/L (8-55); AST (SGOT) 14 U/L (5-34); Albumin 3.5 g/dL (3.4-4.8); Alkaline Phosphatase 42 U/L (40-110); Anion Gap 12 mmol/L (10-20); BUN (Urea Nitrogen) 16 mg/dL (9.8-20.1); Bilirubin, Total 0.5 mg/dL (0.2-1.2); Calc. Creatinine Clearance 61 mL/min (70-130); Calcium 8.9 mg/dL (7.8-10.44); Carbon Dioxide 25 mmol/L (23-31); Chloride 111 mmol/L (98-107); Globulin 2.9 g/dL (2.4-3.5); Glucose 86 mg/dL (83-110); Potassium 4.6 mmol/L (3.5-5.1); Protein, Total 6.4 g/dL (5.8-8.1); Sodium 143 mmol/L (136-145)
[2021-08-04 07:39] LABS: #Lymphocytes 1.5 thou/uL (1.20-3.40); #Monocytes 0.4 thou/uL (0.11-0.59); #Neutrophils 4.2 thou/uL (1.40-6.50); %Basophils 0.6 % (0.0-1.0); %Eosinophils 0.8 % (0.0-10.0); %Lymphocytes 24.1 % (21.0-51.0); %Monocytes 6.3 % (0.0-10.0); %Neutrophils 68.3 % (42.0-75.0); Hemoglobin 11.5 g/dL (12.0-16.0); Mean Corpuscular HGB CONC 32.4 g/dL (32.0-36.0); Mean Corpuscular Hemoglobin 31.4 pg (27.0-31.0); Mean Corpuscular Volume 96.9 fL (78.0-98.0); Mean Platelet Volume 6.4 fL (7.4-10.4); Platelet Count 283 thou/uL (130-400); Red Blood Cell (RBC) Count 3.67 mill/uL (4.20-5.40); White Blood Cell (WBC) Count 6.1 thou/uL (4.8-10.8)
[2021-08-04] MEDS: Losartan 25 MG TAB PO SCH (09:20)
[2021-08-04] MEDS ORDERED: GoLYTELY 4,000 ml Bottle PO SCH (14:45)
[2021-08-05 06:37] LABS: #Eosinphils 0.1 thou/uL (0.0-0.7); #Lymphocytes 1.6 thou/uL (1.20-3.40); #Monocytes 0.4 thou/uL (0.11-0.59); #Neutrophils 3.8 thou/uL (1.40-6.50); %Basophils 0.7 % (0.0-1.0); %Eosinophils 1.3 % (0.0-10.0); %Lymphocytes 26.9 % (21.0-51.0); %Monocytes 7.1 % (0.0-10.0); Hemoglobin 11.5 g/dL (12.0-16.0); Mean Corpuscular HGB CONC 32.9 g/dL (32.0-36.0); Mean Corpuscular Hemoglobin 31.7 pg (27.0-31.0); Mean Corpuscular Volume 96.3 fL (78.0-98.0); Mean Platelet Volume 6.3 fL (7.4-10.4); Platelet Count 281 thou/uL (130-400); Red Blood Cell (RBC) Count 3.64 mill/uL (4.20-5.40)
[2021-08-05 06:38] LABS: Anion Gap 11 mmol/L (10-20); BUN (Urea Nitrogen) 8 mg/dL (9.8-20.1); Calc. Creatinine Clearance 64 mL/min (70-130); Calcium 9.2 mg/dL (7.8-10.44); Carbon Dioxide 30 mmol/L (23-31); Chloride 106 mmol/L (98-107); Glucose 86 mg/dL (83-110); Potassium 4.3 mmol/L (3.5-5.1); Sodium 143 mmol/L (136-145)
[2021-08-05] MEDS: Losartan 25 MG TAB PO SCH (08:23)
[2021-08-05] MEDS ORDERED: Lidocaine 1% PF 5 ML VIAL ONE (15:10)
[2021-08-05] MEDS ORDERED: PROPOFOL 200 MG/20 ML VIAL ONE (15:10)
[2021-08-05] MEDS ORDERED: Promethazine HCl 25 MG/ML VIAL IVPB PRN (15:49)
[2021-08-05] MEDS ORDERED: Promethazine HCl 25 MG/ML VIAL IM PRN (15:49)
[2021-08-05] MEDS ORDERED: Ondansetron HCl/PF 4 MG/2 ML Vial IVP PRN (15:49)
[2021-08-05] MEDS ORDERED: hydrALAZINE 20 MG/ML VIAL SLOW IVP PRN (22:24)
[2021-08-05] MEDS ORDERED: Morphine 2 MG/ML VIAL SLOW IVP SCH (23:45)
[2021-08-06 00:09] LABS: Troponin I Less than 0.010 ng/mL (< 0.028)
[2021-08-06 07:49] LABS: #Lymphocytes 1.6 thou/uL (1.20-3.40); #Monocytes 0.5 thou/uL (0.11-0.59); #Neutrophils 7.3 thou/uL (1.40-6.50); %Basophils 0.1 % (0.0-1.0); %Eosinophils 0.2 % (0.0-10.0); %Lymphocytes 16.6 % (21.0-51.0); %Monocytes 5.4 % (0.0-10.0); %Neutrophils 77.6 % (42.0-75.0); Hemoglobin 11.5 g/dL (12.0-16.0); Mean Corpuscular HGB CONC 34.6 g/dL (32.0-36.0); Mean Corpuscular Hemoglobin 32.4 pg (27.0-31.0); Mean Corpuscular Volume 93.6 fL (78.0-98.0); Mean Platelet Volume 6.3 fL (7.4-10.4); Platelet Count 280 thou/uL (130-400); Red Blood Cell (RBC) Count 3.55 mill/uL (4.20-5.40); White Blood Cell (WBC) Count 9.4 thou/uL (4.8-10.8)
[2021-08-06 08:09] VITALS: BP 113/66; TEMP 98.3
[2021-08-06 08:11] LABS: Anion Gap 10 mmol/L (10-20); BUN (Urea Nitrogen) 11 mg/dL (9.8-20.1); Calc. Creatinine Clearance 65 mL/min (70-130); Calcium 9.2 mg/dL (7.8-10.44); Carbon Dioxide 27 mmol/L (23-31); Chloride 106 mmol/L (98-107); Glucose 105 mg/dL (83-110); Potassium 3.8 mmol/L (3.5-5.1); Sodium 139 mmol/L (136-145)
[2021-08-06] MEDS: Losartan 25 MG TAB PO SCH (09:01)
== END 2021-08-06 11:31 | disposition home or self-care (01) | DRG 379 ==
LOC: ERS 15:40 → T4-A 19:40 → OBSVTOIN 08-05 16:44
PROVIDERS: ADMIT Family Medicine; ATTEND Family Medicine
PROC: 0DJ08ZZ Inspection of Upper Intestinal Tract, Via Natural or Artificial Opening Endoscopic (ICD-10-PCS; principal; 2021-08-05)
PROC: 0DJD8ZZ Inspection of Lower Intestinal Tract, Via Natural or Artificial Opening Endoscopic (ICD-10-PCS; 2021-08-05)
DX: K92.1 Melena (principal); Z20.822 Contact with and (suspected) exposure to COVID-19; I25.10 Atherosclerotic heart disease of native coronary artery without angina pectoris; I10 Essential (primary) hypertension; K21.9 Gastro-esophageal reflux disease without esophagitis; D64.9 Anemia, unspecified; K57.30 Diverticulosis of large intestine without perforation or abscess without bleeding; M19.90 Unspecified osteoarthritis, unspecified site; E78.5 Hyperlipidemia, unspecified; Z96.651 Presence of right artificial knee joint; Z79.82 Long term (current) use of aspirin; Z79.899 Other long term (current) drug therapy; Z95.5 Presence of coronary angioplasty implant and graft; Z90.710 Acquired absence of both cervix and uterus; Z90.49 Acquired absence of other specified parts of digestive tract; Z88.8 Allergy status to other drugs, medicaments and biological substances; Z88.6 Allergy status to analgesic agent; Z28.311 Partially vaccinated for COVID-19
CPT/HCPCS: 36415; 74177; 80048; 80053; 81003; 82550; 83690; 84484; 85014; 85018; 85025; 86850; 86900; 86901; 93005; 93010; C9113; J0360; J2270; J2704; J7050; Q9967; U0003; U0005

== ENCOUNTER 2022-03-14 13:03 | Outpatient (CLI) | payer MEDICARE | END 2022-03-14 13:04 | disposition home or self-care (01) | LOC: BICMAMMO 13:03 | PROVIDERS: ATTEND Family Medicine | DX: Z12.31 Encounter for screening mammogram for malignant neoplasm of breast (principal); M81.0 Age-related osteoporosis without current pathological fracture; M85.851 Other specified disorders of bone density and structure, right thigh; M85.852 Other specified disorders of bone density and structure, left thigh; Z80.3 Family history of malignant neoplasm of breast; Z91.89 Other specified personal risk factors, not elsewhere classified | CPT/HCPCS: 77063; 77067; 77080 ==

== ENCOUNTER 2022-04-08 07:54 | Outpatient (CLI) | payer MEDICARE ==
[2022-04-08] MEDS ORDERED: Iopamidol 370 76% 100 ML VIAL ONE (11:30)
== END 2022-04-08 07:55 | disposition home or self-care (01) ==
LOC: CT 07:54
PROVIDERS: ATTEND Physician Assistant Medical
DX: K57.90 Diverticulosis of intestine, part unspecified, without perforation or abscess without bleeding (principal); R10.31 Right lower quadrant pain; K57.30 Diverticulosis of large intestine without perforation or abscess without bleeding; I71.40 Abdominal aortic aneurysm, without rupture, unspecified; I70.0 Atherosclerosis of aorta; Z90.49 Acquired absence of other specified parts of digestive tract
CPT/HCPCS: 74177; 82565

== ENCOUNTER 2022-05-05 08:41 | Emergency (ER) | payer MEDICARE, OTHER ==
[2022-05-05] MEDS ORDERED: Iopamidol-370 76% 500 ML 1 ML ONE (08:50)
[2022-05-05 09:20] LABS: #Eosinphils 0.1 thou/uL (0.0-0.7); #Lymphocytes 1.2 thou/uL (1.20-3.40); #Monocytes 0.3 thou/uL (0.11-0.59); #Neutrophils 3.8 thou/uL (1.40-6.50); %Basophils 0.8 % (0.0-1.0); %Eosinophils 1.1 % (0.0-10.0); %Lymphocytes 22.6 % (21.0-51.0); %Monocytes 5.1 % (0.0-10.0); %Neutrophils 70.4 % (42.0-75.0); Hemoglobin 14.1 g/dL (12.0-16.0); Mean Corpuscular HGB CONC 33.5 g/dL (32.0-36.0); Mean Corpuscular Hemoglobin 31.4 pg (27.0-31.0); Mean Corpuscular Volume 93.9 fl (78.0-98.0); Platelet Count 310 10x3/uL (130-400); RBC Distribution Width 11.5 % (11.5-14.5); Red Blood Cell (RBC) Count 4.48 mill/uL (4.20-5.40); White Blood Cell (WBC) Count 5.4 10x3/uL (4.8-10.8)
[2022-05-05 09:32] LABS: PTT 28.5 sec (22.9-36.1); Prothrombin Time 13.1 sec (12.0-14.7)
[2022-05-05 09:41] LABS: ALT (SGPT) 14 U/L (8-55); AST (SGOT) 19 U/L (5-34); Albumin 4.7 g/dL (3.4-4.8); Alkaline Phosphatase 63 U/L (40-110); Anion Gap 15 mmol/L (10-20); BUN (Urea Nitrogen) 15 mg/dL (9.8-20.1); Calc. Creatinine Clearance 0 mL/min (70-130); Calcium 10.2 mg/dL (7.8-10.44); Carbon Dioxide 27 mmol/L (23-31); Chloride 105 mmol/L (98-107); Estimated GFR 72; Globulin 3.6 g/dL (2.4-3.5); Glucose 103 mg/dL (83-110); Potassium 4.4 mmol/L (3.5-5.1); Protein, Total 8.3 g/dL (5.8-8.1); Sodium 143 mmol/L (136-145)
== END 2022-05-05 13:44 | disposition home or self-care (01) ==
LOC: ERS 08:41
DX: K92.1 Melena (principal); I10 Essential (primary) hypertension; E78.5 Hyperlipidemia, unspecified; M19.90 Unspecified osteoarthritis, unspecified site; Z79.899 Other long term (current) drug therapy
CPT/HCPCS: 36415; 74177; 80053; 85025; 85610; 85730; 86850; 86900; 86901; 93005; Q9967

== ENCOUNTER 2022-10-07 14:36 | Emergency (ER) | payer MEDICARE ==
[2022-10-07] MEDS ORDERED: fentaNYL 50 mcg/mL 1 mL Vial ONE (15:14)
[2022-10-07 15:38] LABS: #Monocytes 0.5 thou/uL (0.11-0.59); #Neutrophils 10.4 thou/uL (1.40-6.50); %Basophils 0.2 % (0.0-1.0); %Lymphocytes 7.8 % (21.0-51.0); %Monocytes 4.2 % (0.0-10.0); %Neutrophils 87.4 % (42.0-75.0); Hematocrit 37.6 % (36.0-47.0); Hemoglobin 12.1 g/dL (12.0-16.0); Mean Corpuscular HGB CONC 32.2 g/dL (32.0-36.0); Mean Corpuscular Hemoglobin 28.9 pg (27.0-31.0); Mean Corpuscular Volume 89.7 fl (78.0-98.0); Mean Platelet Volume 9.2 fL (7.4-10.4); Platelet Count 268 10x3/uL (130-400); RBC Distribution Width 14.6 % (11.5-14.5); Red Blood Cell (RBC) Count 4.19 mill/uL (4.20-5.40); White Blood Cell (WBC) Count 11.9 10x3/uL (4.8-10.8)
[2022-10-07 16:02] LABS: ALT (SGPT) 9 U/L (8-55); AST (SGOT) 16 U/L (5-34); Albumin 4.3 g/dL (3.4-4.8); Alkaline Phosphatase 58 U/L (40-110); Anion Gap 14 mmol/L (10-20); BUN (Urea Nitrogen) 11 mg/dL (9.8-20.1); Bilirubin, Total 0.5 mg/dL (0.2-1.2); Calc. Creatinine Clearance 0 mL/min (70-130); Calcium 9.5 mg/dL (7.8-10.44); Carbon Dioxide 26 mmol/L (23-31); Chloride 104 mmol/L (98-107); Estimated GFR 68; Globulin 3.3 g/dL (2.4-3.5); Glucose 123 mg/dL (83-110); Potassium 3.9 mmol/L (3.5-5.1); Protein, Total 7.6 g/dL (5.8-8.1); Sodium 140 mmol/L (136-145)
[2022-10-07] MEDS ORDERED: HYDROcodone/Acetaminophen 5/325 mg Tablet ONE (17:29)
== END 2022-10-07 18:49 | disposition home or self-care (01) ==
LOC: ERS 14:36
DX: S43.005A Unspecified dislocation of left shoulder joint, initial encounter (principal); E78.5 Hyperlipidemia, unspecified; I10 Essential (primary) hypertension; W18.30XA Fall on same level, unspecified, initial encounter
CPT/HCPCS: 70450; 71250; 72125; 72170; 73030 ×2; 80053; 85025; 93005; J3010; 36415; 96374

== ENCOUNTER 2023-02-06 08:41 | Outpatient (CLI) | payer MEDICARE | END 2023-02-06 08:42 | disposition home or self-care (01) | LOC: BICMAMMO 08:41 | PROVIDERS: ATTEND Nurse Practitioner Family | DX: M81.0 Age-related osteoporosis without current pathological fracture (principal); M85.852 Other specified disorders of bone density and structure, left thigh; M85.851 Other specified disorders of bone density and structure, right thigh | CPT/HCPCS: 77080 ==

== ENCOUNTER 2023-03-27 13:37 | Outpatient (CLI) | payer MEDICARE | END 2023-03-27 13:38 | disposition home or self-care (01) | LOC: BICMAMMO 13:37 | PROVIDERS: ATTEND Nurse Practitioner Family | DX: Z12.31 Encounter for screening mammogram for malignant neoplasm of breast (principal); Z80.3 Family history of malignant neoplasm of breast; Z91.89 Other specified personal risk factors, not elsewhere classified | CPT/HCPCS: 77063; 77067 ==

== ENCOUNTER 2023-07-11 12:04 | Outpatient (CLI) | payer MEDICARE ==
[~2023-07-11 12:04] MED LIST changes: +Iopamidol 370 76% 100 ML VIAL ONE; -Iopamidol-370 76% 500 ML 1 ML ONE
== END 2023-07-11 12:05 | disposition home or self-care (01) ==
LOC: CT 12:04
PROVIDERS: ATTEND Internal Medicine
DX: K59.09 Other constipation (principal); R10.84 Generalized abdominal pain; R14.2 Eructation; K86.89 Other specified diseases of pancreas; N28.1 Cyst of kidney, acquired; K57.30 Diverticulosis of large intestine without perforation or abscess without bleeding; K40.90 Unilateral inguinal hernia, without obstruction or gangrene, not specified as recurrent; Z90.710 Acquired absence of both cervix and uterus; Z90.49 Acquired absence of other specified parts of digestive tract
CPT/HCPCS: 74177; Q9967

== ENCOUNTER 2024-02-15 07:49 | Emergency (ER) | payer MEDICARE ==
[2024-02-15] MEDS ORDERED: Acetaminophen 500 MG TAB ONE (08:20)
[2024-02-15 09:02] LABS: #Basophils Less than 0.03 10x3/uL (0.0-0.2); %Basophils 0.3 % (0.0-1.0); %Eosinophils 0.7 % (0.0-10.0); %Lymphocytes 13.2 % (21.0-51.0); %Monocytes 8.3 % (0.0-10.0); %Neutrophils 77.2 % (42.0-75.0); Hematocrit 37.1 % (36.0-47.0); Hemoglobin 12.3 g/dL (12.0-16.0); Mean Corpuscular HGB CONC 33.2 g/dL (32.0-36.0); Mean Corpuscular Hemoglobin 30.4 pg (27.0-31.0); Mean Corpuscular Volume 91.6 fL (78.0-98.0); Platelet Count 258 10x3/uL (130-400); RBC Distribution Width 12.2 % (11.5-14.5); Red Blood Cell (RBC) Count 4.05 mill/uL (4.20-5.40)
[2024-02-15 09:17] LABS: ALT (SGPT) 9 U/L (8-55); AST (SGOT) 20 U/L (5-34); Alkaline Phosphatase 62 U/L (40-110); Anion Gap 14 mmol/L (10-20); BUN (Urea Nitrogen) 10 mg/dL (9.8-20.1); Bilirubin, Total 0.7 mg/dL (0.2-1.2); Calc. Creatinine Clearance 0 mL/min (70-130); Calcium 9.2 mg/dL (7.8-10.44); Carbon Dioxide 26 mmol/L (23-31); Chloride 100 mmol/L (98-107); Estimated GFR 84; Globulin 3.8 g/dL (2.4-3.5); Glucose 100 mg/dL (83-110); Potassium 4.1 mmol/L (3.5-5.1); Protein, Total 7.8 g/dL (5.8-8.1); Sodium 136 mmol/L (136-145)
[2024-02-15 09:23] LABS: Bacteria/HPF None Seen HPF (None Seen); Bilirubin Negative (Negative); Blood, Urine Negative (Negative); CAUTI Indications for Culture Fever or rigors; Clarity Clear (Clear); Glucose, Urine (Dipstick) Normal (Negative); Ketone, Urine Negative (Negative); Leukocyte Negative Leu/uL (Negative); Nitrite Negative (Negative); Protein, Urine (Dipstick) Negative (Neg-Trace); Squamous Epithelial 0-3 HPF (0-3); Urobilinogen Normal mg/dL (Less than 2); WBC/HPF 0-3 HPF (0-3)
[2024-02-15 09:28] LABS: Actual Bicarbonate (HCO3v) 25.3 mEq/L (22-28); Base Excess 0.3 mEq/L (-2.0 to +3.0); Calcium, Ionized (venous) 1.12 mmol/L (1.16-1.32); Chloride (VBG) 100 mmol/L (98-106); Hematocrit-VBG 39 % (36.0-47.0); Hemoglobin (Hb) 13.4 g/dL (11.7-16.1); Potassium (VBG) 4.75 mmol/L (3.70-5.30); Sodium 136 mmol/L (133-146); pH (venous) 7.398 (7.32-7.43)
[2024-02-15 09:30] LABS: Urine Culture Reflex No No
[2024-02-15 10:14] LABS: Troponin I Less than 0.010 ng/mL (< 0.028)
== END 2024-02-15 11:33 | disposition home or self-care (01) ==
LOC: ERS 07:49
DX: J06.9 Acute upper respiratory infection, unspecified (principal); R54 Age-related physical debility; I10 Essential (primary) hypertension; Z95.5 Presence of coronary angioplasty implant and graft
CPT/HCPCS: 71045; 71275; 80053; 81001; 82805; 83605; 84484; 85025; 87040; 87086; 87428; 94760

== ENCOUNTER 2024-03-30 14:13 | Outpatient (CLI) | payer MEDICARE | END 2024-03-30 14:14 | disposition home or self-care (01) | LOC: BICRAD 14:13 | PROVIDERS: ATTEND Nurse Practitioner Family | DX: M79.672 Pain in left foot (principal); Z95.5 Presence of coronary angioplasty implant and graft; M19.072 Primary osteoarthritis, left ankle and foot ==

== ENCOUNTER 2024-03-31 14:40 | Outpatient (CLI) | payer MEDICARE | END 2024-03-31 14:41 | disposition home or self-care (01) | LOC: ULT 14:40 | PROVIDERS: ATTEND Nurse Practitioner Family | DX: R79.89 Other specified abnormal findings of blood chemistry (principal) ==

== ENCOUNTER 2024-10-23 16:03 | Inpatient (IN) | payer MEDICARE ==
[2024-10-23 16:30] LABS: #Basophils 0.03 10x3/uL (0.0-0.2); #Eosinophils 0.06 10x3/uL (0.0-0.7); #Monocytes 0.47 10x3/uL (0.11-0.59); #Neutrophils 4.25 10x3/uL (1.40-6.50); %Basophils 0.5 % (0.0-1.0); %Eosinophils 1.0 % (0.0-10.0); %Lymphocytes 23.1 % (21.0-51.0); %Monocytes 7.5 % (0.0-10.0); %Neutrophils 67.7 % (42.0-75.0); Hematocrit 35.5 % (36.0-47.0); Hemoglobin 11.7 g/dL (12.0-16.0); Mean Corpuscular Hemoglobin 29.3 pg (27.0-31.0); Mean Corpuscular Volume 89.0 fL (78.0-98.0); Platelet Count 232 10x3/uL (130-400); Red Blood Cell (RBC) Count 3.99 mill/uL (4.20-5.40); White Blood Cell (WBC) Count 6.27 10x3/uL (4.8-10.8)
[2024-10-23 16:52] LABS: ALT (SGPT) 11 U/L (Less than 34); AST (SGOT) 19 U/L (11-34); Albumin 3.8 g/dL (3.1-4.5); Alkaline Phosphatase 59 U/L (40-110); Anion Gap 13 mmol/L (10-20); BUN (Urea Nitrogen) 25 mg/dL (9.8-20.1); Bilirubin, Total 0.5 mg/dL (0.3-1.2); Calc. Creatinine Clearance 0 mL/min (70-130); Calcium 9.4 mg/dL (7.8-10.44); Carbon Dioxide 27 mmol/L (23-31); Chloride 108 mmol/L (98-107); Globulin 3.3 g/dL (2.4-3.5); Glucose 88 mg/dL (83-110); Potassium 3.9 mmol/L (3.5-5.1); Sodium 144 mmol/L (136-145)
[2024-10-23 16:54] LABS: INR-International Normal Ratio 1.1; PTT 30.5 sec (22.9-36.1); Prothrombin Time 14.5 sec (12.0-14.7)
[2024-10-23] MEDS ORDERED: Aspirin Chewable 81 MG TAB ONE (17:38)
[2024-10-23] MEDS ORDERED: hydrALAZINE 20 MG/ML VIAL SLOW IVP PRN (17:44)
[2024-10-23] MEDS ORDERED: Ondansetron PF 4 MG/2 ML Vial IVP PRN (17:45)
[2024-10-23 18:45] VITALS: BMI 24.3
[2024-10-23] MEDS ORDERED: Famotidine/PF 20 mg/2ml Vial SLOW IVP SCH (21:00)
[2024-10-23] MEDS: Famotidine/PF 20 mg/2ml Vial SLOW IVP SCH (21:37)
[2024-10-24 04:39] LABS: Cardiac Risk 3.6 (Less than 4.5); Cholesterol 180.0 mg/dl (< 200 Desired); HDL Cholesterol 50.0 mg/dL (>60 Neg Risk); LDL Cholesterol, Calculated 98.0 mg/dL; Triglycerides 162.0 mg/dL (Less than 150)
[2024-10-24] MEDS: Aspirin 81 mg Enteric Coated Tablet PO SCH (08:13)
[2024-10-24] MEDS: Enoxaparin 40 MG (0.4 mL) SYRINGE SC SCH (08:13)
[2024-10-24 11:16] LABS: CAUTI Indications for Culture Alt mental st,lethar; Glucose, Urine (Dipstick) Normal (Negative); Leukocyte 75 Leu/uL (Negative); Protein, Urine (Dipstick) Negative (Neg-Trace); RBC/HPF 0-3 HPF (0-3); Specific Gravity, Urine 1.011 (1.002-1.036)
[2024-10-24 11:17] LABS: Bacteria/HPF 1+ HPF (None Seen)
[2024-10-24 11:18] LABS: Urine Culture Reflex No No
[2024-10-25 05:11] LABS: #Basophils 0.05 10x3/uL (0.0-0.2); #Eosinophils 0.04 10x3/uL (0.0-0.7); #Monocytes 0.73 10x3/uL (0.11-0.59); #Neutrophils 6.45 10x3/uL (1.40-6.50); %Basophils 0.5 % (0.0-1.0); %Eosinophils 0.4 % (0.0-10.0); %Lymphocytes 24.2 % (21.0-51.0); %Monocytes 7.6 % (0.0-10.0); %Neutrophils 67.0 % (42.0-75.0); Hematocrit 38.6 % (36.0-47.0); Hemoglobin 12.5 g/dL (12.0-16.0); Mean Corpuscular Hemoglobin 29.4 pg (27.0-31.0); Mean Corpuscular Volume 90.8 fL (78.0-98.0); Platelet Count 259 10x3/uL (130-400); Red Blood Cell (RBC) Count 4.25 mill/uL (4.20-5.40); White Blood Cell (WBC) Count 9.63 10x3/uL (4.8-10.8)
[2024-10-25 05:37] LABS: Anion Gap 16 mmol/L (10-20); BUN (Urea Nitrogen) 15 mg/dL (9.8-20.1); Calc. Creatinine Clearance 63 mL/min (70-130); Calcium 9.4 mg/dL (7.8-10.44); Carbon Dioxide 26 mmol/L (23-31); Chloride 104 mmol/L (98-107); Glucose 108 mg/dL (83-110); Potassium 3.6 mmol/L (3.5-5.1); Sodium 142 mmol/L (136-145)
[2024-10-25] MEDS: Ezetimibe 10 MG TAB PO SCH (08:10)
[2024-10-25] MEDS: Metoprolol Succinate XL 25 MG ER.TAB PO SCH (18:42)
[2024-10-26 04:09] LABS: #Basophils 0.03 10x3/uL (0.0-0.2); #Eosinophils Less than 0.03 10x3/uL (0.0-0.7); #Monocytes 0.96 10x3/uL (0.11-0.59); #Neutrophils 7.56 10x3/uL (1.40-6.50); %Basophils 0.3 % (0.0-1.0); %Eosinophils 0.0 % (0.0-10.0); %Lymphocytes 16.5 % (21.0-51.0); %Monocytes 9.3 % (0.0-10.0); %Neutrophils 73.6 % (42.0-75.0); Hematocrit 36.3 % (36.0-47.0); Hemoglobin 11.8 g/dL (12.0-16.0); Mean Corpuscular Hemoglobin 29.3 pg (27.0-31.0); Mean Corpuscular Volume 90.1 fL (78.0-98.0); Platelet Count 238 10x3/uL (130-400); Red Blood Cell (RBC) Count 4.03 mill/uL (4.20-5.40); White Blood Cell (WBC) Count 10.28 10x3/uL (4.8-10.8)
[2024-10-26 04:19] LABS: Anion Gap 14 mmol/L (10-20); BUN (Urea Nitrogen) 14 mg/dL (9.8-20.1); Calc. Creatinine Clearance 63 mL/min (70-130); Calcium 9.1 mg/dL (7.8-10.44); Carbon Dioxide 25 mmol/L (23-31); Chloride 104 mmol/L (98-107); Glucose 115 mg/dL (83-110); Potassium 3.8 mmol/L (3.5-5.1); Sodium 139 mmol/L (136-145)
[2024-10-26] MEDS: Metoprolol Succinate XL 25 MG ER.TAB PO SCH (08:35)
[2024-10-26] MEDS: Acetaminophen 500 MG TAB PO PRN (08:35)
[2024-10-26 14:59] LABS: Bacteria/HPF None Seen HPF (None Seen); Glucose, Urine (Dipstick) Normal (Negative); Leukocyte Negative Leu/uL (Negative); Protein, Urine (Dipstick) Negative (Neg-Trace); Specific Gravity, Urine 1.007 (1.002-1.036); WBC/HPF 0-3 HPF (0-3)
[2024-10-27 04:35] LABS: #Basophils 0.03 10x3/uL (0.0-0.2); #Eosinophils Less than 0.03 10x3/uL (0.0-0.7); #Monocytes 0.98 10x3/uL (0.11-0.59); #Neutrophils 7.35 10x3/uL (1.40-6.50); %Basophils 0.3 % (0.0-1.0); %Eosinophils 0.1 % (0.0-10.0); %Lymphocytes 18.1 % (21.0-51.0); %Monocytes 9.5 % (0.0-10.0); %Neutrophils 71.6 % (42.0-75.0); Hematocrit 32.7 % (36.0-47.0); Hemoglobin 10.7 g/dL (12.0-16.0); Mean Corpuscular Hemoglobin 29.6 pg (27.0-31.0); Mean Corpuscular Volume 90.6 fL (78.0-98.0); Platelet Count 215 10x3/uL (130-400); Red Blood Cell (RBC) Count 3.61 mill/uL (4.20-5.40); White Blood Cell (WBC) Count 10.27 10x3/uL (4.8-10.8)
[2024-10-27 06:06] LABS: Anion Gap 14 mmol/L (10-20); BUN (Urea Nitrogen) 19 mg/dL (9.8-20.1); Calc. Creatinine Clearance 60 mL/min (70-130); Calcium 8.9 mg/dL (7.8-10.44); Carbon Dioxide 23 mmol/L (23-31); Chloride 104 mmol/L (98-107); Glucose 106 mg/dL (83-110); Potassium 3.7 mmol/L (3.5-5.1); Sodium 137 mmol/L (136-145)
[2024-10-27] MEDS: Colchicine 0.6 MG TAB PO SCH (13:01)
[2024-10-27 16:08] VITALS: BP 146/65; TEMP 99.7
== END 2024-10-27 17:00 | DRG 65 ==
LOC: ERS 16:03 → 2SE 17:19 → OBSVTOIN 10-24 13:04
PROVIDERS: ADMIT Hospitalist; ATTEND Emergency Medicine
DX: I63.9 Cerebral infarction, unspecified (principal); G93.40 Encephalopathy, unspecified; I10 Essential (primary) hypertension; Z66 Do not resuscitate; E78.5 Hyperlipidemia, unspecified; R29.701 NIHSS score 1; M17.12 Unilateral primary osteoarthritis, left knee; M19.031 Primary osteoarthritis, right wrist; I25.10 Atherosclerotic heart disease of native coronary artery without angina pectoris; Z96.651 Presence of right artificial knee joint; Z95.818 Presence of other cardiac implants and grafts; Z88.8 Allergy status to other drugs, medicaments and biological substances; Z90.49 Acquired absence of other specified parts of digestive tract
CPT/HCPCS: 36415; 70450; 70551; 71045; 80048; 80053; 80061; 81001; 81003; 81015; 84484; 84550; 85025; 85610; 85730; 93005; 93306; 93880; 94760; 96372; 96374; G0378; J1308; J1650

== ENCOUNTER 2025-01-12 14:42 | Inpatient (IN) | payer MEDICARE ==
[2025-01-12 15:19] LABS: #Basophils 0.03 10x3/uL (0.0-0.2); #Eosinophils 0.04 10x3/uL (0.0-0.7); #Monocytes 0.47 10x3/uL (0.11-0.59); #Neutrophils 3.67 10x3/uL (1.40-6.50); %Basophils 0.5 % (0.0-1.0); %Eosinophils 0.6 % (0.0-10.0); %Lymphocytes 35.9 % (21.0-51.0); %Monocytes 7.1 % (0.0-10.0); %Neutrophils 55.6 % (42.0-75.0); Hematocrit 33.7 % (36.0-47.0); Hemoglobin 11.1 g/dL (12.0-16.0); Mean Corpuscular Hemoglobin 30.0 pg (27.0-31.0); Mean Corpuscular Volume 91.1 fL (78.0-98.0); Platelet Count 261 10x3/uL (130-400); Red Blood Cell (RBC) Count 3.70 mill/uL (4.20-5.40); White Blood Cell (WBC) Count 6.60 10x3/uL (4.8-10.8)
[2025-01-12 15:33] LABS: ALT (SGPT) 7 U/L (Less than 34); AST (SGOT) 23 U/L (11-34); Albumin 3.9 g/dL (3.1-4.5); Alkaline Phosphatase 54 U/L (40-110); Anion Gap 15 mmol/L (10-20); BUN (Urea Nitrogen) 21 mg/dL (9.8-20.1); Bilirubin, Total 0.6 mg/dL (0.3-1.2); Calc. Creatinine Clearance 0 mL/min (70-130); Calcium 9.8 mg/dL (7.8-10.44); Carbon Dioxide 29 mmol/L (23-31); Chloride 100 mmol/L (98-107); Globulin 3.2 g/dL (2.4-3.5); Glucose 88 mg/dL (83-110); Magnesium 2.0 mg/dL (1.6-2.6); Potassium 4.3 mmol/L (3.5-5.1); Sodium 140 mmol/L (136-145)
[2025-01-12] MEDS ORDERED: Ondansetron PF 4 MG/2 ML Vial IVP PRN (18:14)
[2025-01-12 19:23] VITALS: BMI 23.2
[2025-01-13 04:21] LABS: #Basophils 0.03 10x3/uL (0.0-0.2); #Eosinophils 0.06 10x3/uL (0.0-0.7); #Monocytes 0.44 10x3/uL (0.11-0.59); #Neutrophils 3.17 10x3/uL (1.40-6.50); %Basophils 0.5 % (0.0-1.0); %Eosinophils 1.1 % (0.0-10.0); %Lymphocytes 33.6 % (21.0-51.0); %Monocytes 7.9 % (0.0-10.0); %Neutrophils 56.7 % (42.0-75.0); Hematocrit 35.6 % (36.0-47.0); Hemoglobin 11.8 g/dL (12.0-16.0); Mean Corpuscular Hemoglobin 29.9 pg (27.0-31.0); Mean Corpuscular Volume 90.1 fL (78.0-98.0); Platelet Count 255 10x3/uL (130-400); Red Blood Cell (RBC) Count 3.95 mill/uL (4.20-5.40); White Blood Cell (WBC) Count 5.59 10x3/uL (4.8-10.8)
[2025-01-13 04:40] LABS: Anion Gap 11 mmol/L (10-20); BUN (Urea Nitrogen) 16 mg/dL (9.8-20.1); Calc. Creatinine Clearance 53 mL/min (70-130); Calcium 9.5 mg/dL (7.8-10.44); Carbon Dioxide 28 mmol/L (23-31); Cardiac Risk 3.2 (Less than 4.5); Chloride 104 mmol/L (98-107); Cholesterol 161 mg/dl (< 200 Desired); Glucose 84 mg/dL (83-110); HDL Cholesterol 50 mg/dL (>60 Neg Risk); LDL Cholesterol, Calculated 84 mg/dL; Potassium 3.8 mmol/L (3.5-5.1); Sodium 139 mmol/L (136-145); Triglycerides 136 mg/dL (Less than 150)
[2025-01-13] MEDS ORDERED: Metoprolol Succinate XL 25 MG ER.TAB PO SCH (09:00)
[2025-01-13] MEDS ORDERED: Losartan 25 MG TAB PO SCH (09:00)
[2025-01-13] MEDS: Pantoprazole 40 MG DR.TAB PO SCH (09:12)
[2025-01-13] MEDS: Ezetimibe 10 MG TAB PO SCH (09:13)
[2025-01-13] MEDS: Enoxaparin 40 MG (0.4 mL) SYRINGE SC SCH (09:13)
[2025-01-13] MEDS: PNEUMOC 20-VAL CONJ-DIP CRM/PF 0.5 ML SYRINGE IM ONE (12:07)
[2025-01-14] MEDS: Acetaminophen 325 MG TAB PO PRN (11:02)
[2025-01-14] MEDS ORDERED: PROPOFOL 200 MG/20 ML VIAL ONE (13:03)
[2025-01-14] MEDS: Lidocaine 2% 6 ML (Jelly) SYR TOP PRN (15:48)
[2025-01-15 04:59] LABS: Hematocrit 32.6 % (36.0-47.0); Hemoglobin 10.9 g/dL (12.0-16.0); Mean Corpuscular Hemoglobin 30.4 pg (27.0-31.0); Mean Corpuscular Volume 90.8 fL (78.0-98.0); Platelet Count 240 10x3/uL (130-400); Red Blood Cell (RBC) Count 3.59 mill/uL (4.20-5.40); White Blood Cell (WBC) Count 7.54 10x3/uL (4.8-10.8)
[2025-01-15 05:16] LABS: Anion Gap 14 mmol/L (10-20); BUN (Urea Nitrogen) 20 mg/dL (9.8-20.1); Calc. Creatinine Clearance 54 mL/min (70-130); Calcium 9.2 mg/dL (7.8-10.44); Carbon Dioxide 27 mmol/L (23-31); Chloride 105 mmol/L (98-107); Glucose 106 mg/dL (83-110); Potassium 4.2 mmol/L (3.5-5.1); Sodium 142 mmol/L (136-145)
[2025-01-15] MEDS: Losartan 25 MG TAB PO SCH (10:02)
[2025-01-15] MEDS: Metoprolol Succinate XL 25 MG ER.TAB PO SCH (10:03)
[2025-01-16] MEDS: Cyclobenzaprine 10 MG TAB PO SCH (00:02)
[2025-01-16] MEDS ORDERED: Sodium Chloride 0.65% Nasal 44 ML BOT EA NARE PRN (11:20)
[2025-01-16 13:20] LABS: Bacteria/HPF None Seen HPF (None Seen); CAUTI Indications for Culture Alt mental st,lethar; Glucose, Urine (Dipstick) Normal (Negative); Leukocyte Negative Leu/uL (Negative); Protein, Urine (Dipstick) Negative (Neg-Trace); RBC/HPF 0-3 HPF (0-3); Specific Gravity, Urine 1.010 (1.002-1.036); WBC/HPF 0-3 HPF (0-3)
[2025-01-16 13:22] LABS: Urine Culture Reflex No No
[2025-01-16] MEDS ORDERED: Methocarbamol 500 MG TAB PO PRN (19:32)
[2025-01-18 11:21] VITALS: TEMP 98.6
[2025-01-18 11:28] VITALS: BP 177/81
== END 2025-01-18 13:30 | DRG 64 ==
LOC: ERS 14:42 → 2NO 17:55 → OBSVTOIN 01-13 14:16
PROVIDERS: ADMIT Internal Medicine; ATTEND Internal Medicine
PROC: B24BZZ4 Ultrasonography of Heart with Aorta, Transesophageal (ICD-10-PCS; principal; 2025-01-14)
DX: I63.9 Cerebral infarction, unspecified (principal); G93.41 Metabolic encephalopathy; R29.701 NIHSS score 1; Z86.73 Personal history of transient ischemic attack (TIA), and cerebral infarction without residual deficits; I25.10 Atherosclerotic heart disease of native coronary artery without angina pectoris; Z95.5 Presence of coronary angioplasty implant and graft; I10 Essential (primary) hypertension; E78.5 Hyperlipidemia, unspecified; Z88.6 Allergy status to analgesic agent; Z88.8 Allergy status to other drugs, medicaments and biological substances; Z90.710 Acquired absence of both cervix and uterus; Z90.49 Acquired absence of other specified parts of digestive tract; Z98.890 Other specified postprocedural states; M17.12 Unilateral primary osteoarthritis, left knee; D64.9 Anemia, unspecified
CPT/HCPCS: 36415; 70450; 70544; 70553; 71045; 76376; 80048; 80053; 80061; 81001; 83036; 83735; 84484; 85025; 85027; 93005; 93312; 96372; G0378; J1650; J2704